=== PATIENT | female | born 1970 ===

== ENCOUNTER 2017-07-28 14:05 | Outpatient (CLI) | payer OTHER ==
[~2017-07-28 14:05] MED LIST: PERCOCET 5-3251 EACH PO; RECTICARE30 GM TOP
== END 2017-07-28 14:12 | disposition home or self-care (01) ==
LOC: MAMO-SONO 14:05 → MAMO 607 14:15
DX: Z12.31 Encounter for screening mammogram for malignant neoplasm of breast (principal); N60.09 Solitary cyst of unspecified breast

== ENCOUNTER 2018-02-02 12:22 | Outpatient (CLI) | payer OTHER | END 2018-02-02 12:28 | disposition home or self-care (01) | LOC: SONOGRAMA 12:22 | DX: N63.11 Unspecified lump in the right breast, upper outer quadrant (principal); N60.11 Diffuse cystic mastopathy of right breast; N60.12 Diffuse cystic mastopathy of left breast ==

== ENCOUNTER 2018-08-17 14:30 | Outpatient (CLI) | payer OTHER | END 2018-08-17 14:41 | disposition home or self-care (01) | LOC: MAMO-SONO 14:30 | DX: N60.11 Diffuse cystic mastopathy of right breast (principal); N60.12 Diffuse cystic mastopathy of left breast; Z12.31 Encounter for screening mammogram for malignant neoplasm of breast ==

== ENCOUNTER 2019-04-28 14:41 | Outpatient (CLI) | payer OTHER | END 2019-04-28 14:47 | disposition home or self-care (01) | LOC: SONOGRAMA 14:41 | DX: N60.11 Diffuse cystic mastopathy of right breast (principal); N60.12 Diffuse cystic mastopathy of left breast ==

== ENCOUNTER 2019-08-20 12:04 | Outpatient (CLI) | payer OTHER | END 2019-08-20 12:50 | disposition home or self-care (01) | LOC: MAMO-SONO 12:04 | DX: Z12.31 Encounter for screening mammogram for malignant neoplasm of breast (principal); Z87.898 Personal history of other specified conditions; N60.11 Diffuse cystic mastopathy of right breast; N60.12 Diffuse cystic mastopathy of left breast ==

== ENCOUNTER 2020-08-24 11:18 | Outpatient (CLI) | payer OTHER | END 2020-08-24 11:29 | disposition home or self-care (01) | LOC: MAMO-SONO 11:18 | PROVIDERS: ATTEND Surgery | DX: N60.11 Diffuse cystic mastopathy of right breast (principal); N60.12 Diffuse cystic mastopathy of left breast; Z12.31 Encounter for screening mammogram for malignant neoplasm of breast ==

== ENCOUNTER 2021-09-05 13:17 | Outpatient (CLI) | payer OTHER | END 2021-09-05 13:26 | disposition home or self-care (01) | LOC: MAMO-SONO 13:17 | DX: N60.11 Diffuse cystic mastopathy of right breast (principal); N60.12 Diffuse cystic mastopathy of left breast ==

== ENCOUNTER 2022-08-29 12:52 | Outpatient (CLI) | payer OTHER | END 2022-08-29 12:57 | disposition home or self-care (01) | LOC: MAMO-SONO 12:52 | DX: N60.11 Diffuse cystic mastopathy of right breast (principal); N60.12 Diffuse cystic mastopathy of left breast ==

== ENCOUNTER 2024-09-09 14:00 | Outpatient (CLI) | payer OTHER | END 2024-09-09 14:03 | disposition home or self-care (01) | LOC: SONOGRAMA 14:00 | DX: E04.2 Nontoxic multinodular goiter (principal); N60.11 Diffuse cystic mastopathy of right breast; N60.12 Diffuse cystic mastopathy of left breast; Z12.31 Encounter for screening mammogram for malignant neoplasm of breast ==